=== PATIENT | female | born 1955 | race Caucasian/White ===

== ENCOUNTER → 2025-01-26 14:45 | Outpatient (REF) | payer MEDICARE, OTHER, SELFPAY | LOC: WDC 14:45 | PROVIDERS: ATTENDING PHYSICIAN Student in an Organized Health Care Education/Training Program; FAMILY PHYSICIAN Student in an Organized Health Care Education/Training Program | DX: Z12.31 Encounter for screening mammogram for malignant neoplasm of breast (principal) | CPT/HCPCS: 77063; 77067 ==